=== PATIENT | female | born 1980 | race Caucasian/White ===

== ENCOUNTER 2019-07-15 09:16 | Outpatient (CLI) | payer BC, SELFPAY ==
--- NOTE | ~2019-07-15 | US_ITS ---
EXAMINATION: US abdomen complete DATE: 07/15/2019 10:21 INDICATION: Thrombocytopenia TECHNIQUE: Multiple grayscale and Doppler ultrasound images of the abdomen were obtained. COMPARISON: CT dated 04/26/2012 FINDINGS: Aorta measures 2.4 cm in the proximal and mid aorta tapering to 1.8 cm at the distal aorta. The visua lized proximal to mid inferior vena cava is normal. The pancreatic head and body are normal in appear ance. The pancreatic tail is not visualized. Liver has normal contour, with a smooth surface. There is increased parenchymal echogenicity and coarsened echotexture consistent with diffuse hepatic steat osis. No liver lesion identified. No intrahepatic biliary duct dilation suspected. Portal venous wood w was seen in the hepatopetal, normal direction and has normal Doppler waveform. Multiple small mobil e shadowing gallstones along the dependent aspect of the otherwise normal-appearing gallbladder. The common bile duct measures 5 mm, which is normal. Sonographic Chung sign was reported as negative by the [employer] crewmember. There is normal renal contour and echogenicity bilaterally. The right kidney measure s 11.5 x 4.5 x 6.3 cm and the left 12.2 x 5.1 x 5.4 cm. There are no focal renal lesions identified. There is no hydronephrosis. Spleen is normal measuring 11.5 x 5.8 cm x 11.3. IMPRESSION: 1. Cholelithiasis. 2. Diffuse hepatic steatosis. Reviewed, dictated and finalized at location A. [employer]
== END 2019-07-15 09:17 | disposition home or self-care (01) ==
PROVIDERS: Visit Provider Internal Medicine Hematology & Oncology
DX: D69.59 Other secondary thrombocytopenia (principal); K80.20 Calculus of gallbladder without cholecystitis without obstruction; K76.0 Fatty (change of) liver, not elsewhere classified
CPT/HCPCS: 76700

== ENCOUNTER 2019-07-22 11:18 | Outpatient (CLI) | payer BC, SELFPAY ==
[2019-07-22 12:23] LABS: Basophils Percent Auto 0.5 % (0.2-1.2); Eosinophils Absolute Auto 0.2 K/mm3 (0-0.3); Eosinophils Percent Auto 3.1 % (0-4.4); Hematocrit 43.6 % (37.0-47.0); Hemoglobin 14.5 g/dL (12.0-15.0); Immature Granulocyte Absolute 0.03 K/mm3 (0.00-0.031); Immature Granulocyte Percent A 0.4 % (0-0.5); Lymphocytes Absolute Auto 2.91 K/mm3 (0.9-3.2); Lymphocytes Percent Auto 39.6 % (18.3-44.2); Mean Corpuscular HGB Conc 33.3 g/dl (32-36); Mean Corpuscular Hemoglobin 28.8 pg (26-34); Mean Corpuscular Volume 86.7 fl (80-100); Mean Platelet Volume 12.5 fl (7.4-10.4); Monocytes Absolute Auto 0.5 K/mm3 (0.1-0.6); Monocytes Percent Auto 6.1 % (2.6-8.5); Neutrophils Absolute Auto 3.7 K/mm3 (1.3-6.7); Neutrophils Percent Auto 50.3 % (45.5-73.1); Platelet Count Result 120 k/mm3 (150-375); Red Blood Count 5.03 M/mm3 (4.2-5.4); Red Cell Distribution Width 12.1 % (11.5-14.5); White Blood Count 7.3 K/mm3 (4.5-10.0)
[2019-07-22 12:33] LABS: Alanine Aminotransferase 232 U/L (4-35); Albumin Level 4.4 g/dL (3.5-5.1); Alkaline Phosphatase 79 U/L (38-126); Aspartate Amino Transferase 187 U/L (14-36); Bilirubin,Total 0.5 mg/dL (0.2-1.3); Blood Urea Nitrogen 13 mg/dL (7-17); Calcium 9.1 mg/dL (8.4-10.2); Carbon Dioxide 27 mmol/L (22-30); Chloride 102 mmol/L (98-107); Estimated Glomerular Filt Rate > 60; Glucose 99 mg/dL (65-105); Sodium 137 mmol/L (137-145)
[2019-07-22 12:40] LABS: Iron 86 ug/dL (37-170)
[2019-07-22 12:49] LABS: Percent Iron Saturation 23 % (20-50)
[2019-07-31 02:33] LABS: Platelet Antibody, Direct IgG NEGATIVE (NEGATIVE)
== END 2019-07-22 11:19 | disposition home or self-care (01) ==
PROVIDERS: PCP Nurse Practitioner Family; Visit Provider Internal Medicine Hematology & Oncology
DX: D69.59 Other secondary thrombocytopenia (principal)
CPT/HCPCS: 36415; 80053; 82607; 82728; 83540; 83550; 85025; 86023; 86038; 86039